=== PATIENT | female | born 1990 | race Caucasian/White ===

== ENCOUNTER 2018-01-12 09:38 | Emergency (ER) | payer BC, MEDICAID, OTHER ==
[~2018-01-12] VITALS: Ht 165.1 cm; Wt 122.3 kg
[2018-01-12 09:38] VITALS: BP 134/77
[2018-01-12 10:49] LABS: HCG UR SG 1.018 (1.003-1.030)
== END 2018-01-12 11:10 | disposition home or self-care (01) ==
LOC: ED 11:00
DX: Z32.01 Encounter for pregnancy test, result positive (principal); Z88.0 Allergy status to penicillin
CPT/HCPCS: 81025; 99283

== ENCOUNTER 2018-03-04 09:46 | Emergency (ER) | payer MEDICAID ==
[~2018-03-04] VITALS: Ht 165.1 cm; Wt 125.5 kg
[2018-03-04 10:50] LABS: MICROSCOPIC INDICATED
[2018-03-04 10:51] LABS: CULTURE INDICATED? YES
[2018-03-04 11:55] VITALS: BP 127/71
== END 2018-03-04 12:03 | disposition home or self-care (01) ==
LOC: ED 12:00
DX: O20.0 Threatened abortion (principal); Z3A.16 16 weeks gestation of pregnancy
CPT/HCPCS: 36415; 76815; 81001; 86901; 87086; 99285